=== PATIENT | female | born 1940 | race Caucasian/White ===

== ENCOUNTER → 2016-04-30 | Outpatient (CLI) | payer OTHER ==
[~2016-04-30] MED LIST: AMOXICILLIN 50500 MG PO; CEFDINIR300 MG PO; CHLORTABS4 MG PO; CLARITIN LIQUI-10 MG PO; CLARITIN10 M1 PO; CLINORIL 2200 MG/TAB PO; CYMBALTA60 M1 PO; DESYREL 100MG100 MG PO; DULCOLAX STOOL100 MG PO; DURAGESIC50 MCG/PAT TD; FENTANYL12.5 MCG/H TD; FERROUS GL325 MG/TAB PO; FERROUS SULFATE65 MG PO; FUROSEMIDE40 MG; FUROSEMIDE40 MG PO; INDERAL 60 MG PO; KLONOPIN 1MG1 M1 PO; LASIX40 M1 PO; LEVAQUIN 750MG750 M1 PO; LOW DOSE ASPIRI81 M1 PO; MULTIVITAMIN1 SGL PO; NATURAL IRON65 MG PO; NEURONTIN300 MG/CAP PO; NEURONTIN600 M1 PO; NORCO 325 MG-7.1 TA1 PO; NORCO 7.5-3251 EACH PO; PERCOCET 325 MG1 TA2 PO; POTASSIUM CHLO10 ME7 PO; POTASSIUM GLUC500 M1 PO; PRAVACHOL 20MG20 MG PO; PRILOSEC40 M1 PO; PROPRANOLOL HYD60 MG PO; RT ALBUTEROL CC18 GM IH; SLOW-MAG 106 MG1 ECT PO; SYNTHROID0.075 MG/T PO; VITAMIN C500 M6 PO; ZESTRIL40 M1 PO
== END ==
LOC: RAD 11:53
DX: M25.561 Pain in right knee (principal); Z96.651 Presence of right artificial knee joint

== ENCOUNTER 2016-05-13 13:00 | Outpatient (RCR) | payer OTHER ==
[2015-07-24 09:46] VITALS: BP 114/60
[~2016-05-13 13:00] MED LIST changes: -CEFDINIR300 MG PO; -CHLORTABS4 MG PO; -CLARITIN LIQUI-10 MG PO; -DULCOLAX STOOL100 MG PO; -DURAGESIC50 MCG/PAT TD; -FENTANYL12.5 MCG/H TD; -FERROUS GL325 MG/TAB PO; -FUROSEMIDE40 MG; -FUROSEMIDE40 MG PO; -NEURONTIN600 M1 PO; -NORCO 7.5-3251 EACH PO; -POTASSIUM CHLO10 ME7 PO; -POTASSIUM GLUC500 M1 PO; -PROPRANOLOL HYD60 MG PO; -RT ALBUTEROL CC18 GM IH; -SLOW-MAG 106 MG1 ECT PO
== END 2016-07-11 11:55 | disposition home or self-care (01) ==
LOC: PT 13:00
DX: M19.011 Primary osteoarthritis, right shoulder (principal); M17.0 Bilateral primary osteoarthritis of knee

== ENCOUNTER 2016-08-06 00:44 | Emergency (ER) | payer OTHER ==
[~2016-08-06] VITALS: Ht 165.1 cm; Wt 127.3 kg
[2016-08-06] MEDS ORDERED: DURAGESIC50 MCG/PAT TD (00:50)
[2016-08-06 07:00] VITALS: BP 143/58
[2016-08-06] MEDS ORDERED: NORCO 7.5-3251 EACH PO (08:27)
[2016-08-06] MEDS ORDERED: NEURONTIN600 M1 PO (08:29)
[2016-08-06] MEDS ORDERED: FERROUS GL325 MG/TAB PO (08:29)
[2016-08-06] MEDS ORDERED: PROPRANOLOL HYD60 MG PO (08:37)
[2016-08-06] MEDS ORDERED: FUROSEMIDE40 MG (08:40)
[2016-08-06] MEDS ORDERED: DULCOLAX STOOL100 MG PO (08:41)
[2016-08-06] MEDS ORDERED: POTASSIUM GLUC500 M1 PO (08:42)
[2016-08-06] MEDS ORDERED: CHLORTABS4 MG PO (08:44)
[2016-08-06] MEDS ORDERED: CLARITIN LIQUI-10 MG PO (08:45)
== END 2016-08-06 07:00 ==
LOC: ED 00:44
DX: E87.5 Hyperkalemia (principal); G89.29 Other chronic pain; N39.0 Urinary tract infection, site not specified; R00.2 Palpitations; I10 Essential (primary) hypertension
CPT/HCPCS: A4353; J0696; J1815; J7040

== ENCOUNTER 2016-08-06 07:22 | Inpatient (IN) | payer OTHER ==
[~2016-08-06] VITALS: Ht 165.1 cm; Wt 126.6 kg
[~2016-08-06 07:22] MED LIST changes: +DURAGESIC50 MCG/PAT TD
[2016-08-06 07:37] VITALS: BP 138/82
[2016-08-06 08:24] VITALS: BP 138/82
[2016-08-06] MEDS ORDERED: NORCO 7.5-3251 EACH PO (08:27)
[2016-08-06] MEDS ORDERED: NEURONTIN600 M1 PO (08:29)
[2016-08-06] MEDS ORDERED: FERROUS GL325 MG/TAB PO (08:29)
[2016-08-06] MEDS ORDERED: PROPRANOLOL HYD60 MG PO (08:37)
[2016-08-06] MEDS ORDERED: FUROSEMIDE40 MG (08:40)
[2016-08-06] MEDS ORDERED: DULCOLAX STOOL100 MG PO (08:41)
[2016-08-06] MEDS ORDERED: POTASSIUM GLUC500 M1 PO (08:42)
[2016-08-06] MEDS ORDERED: CHLORTABS4 MG PO (08:44)
[2016-08-06] MEDS ORDERED: CLARITIN LIQUI-10 MG PO (08:45)
[2016-08-06 11:13] VITALS: BP 134/78
[2016-08-06 16:13] VITALS: BP 132/70
[2016-08-06 18:12] VITALS: BP 130/68
[2016-08-06 23:10] VITALS: BP 108/49
[2016-08-07] VITALS (7 sets, daily range): BP systolic 113–169; BP diastolic 54–76
[2016-08-08 02:32] VITALS: BP 121/60
[2016-08-08 06:22] VITALS: BP 149/84
[2016-08-08] MEDS ORDERED: FENTANYL12.5 MCG/H TD (09:17)
[2016-08-08] MEDS ORDERED: FUROSEMIDE40 MG PO (09:18)
[2016-08-08] MEDS ORDERED: RT ALBUTEROL CC18 GM IH (09:19)
[2016-08-08] MEDS ORDERED: CEFDINIR300 MG PO (09:20)
[2016-08-08] MEDS ORDERED: SLOW-MAG 106 MG1 ECT PO (09:24)
[2016-08-08] MEDS ORDERED: POTASSIUM CHLO10 ME7 PO (09:25)
[2016-08-08 11:16] VITALS: BP 144/94
== END 2016-08-08 10:48 | disposition home health service (06) | DRG 641 ==
LOC: MED/SURG 07:22
PROVIDERS: ADMIT Physician Assistant
DX: E87.5 Hyperkalemia (principal); N39.0 Urinary tract infection, site not specified; R55 Syncope and collapse; I95.1 Orthostatic hypotension; E86.0 Dehydration; M25.561 Pain in right knee; M25.511 Pain in right shoulder; M54.5 Low back pain; B96.1 Klebsiella pneumoniae [K. pneumoniae] as the cause of diseases classified elsewhere; E66.01 Morbid (severe) obesity due to excess calories; Z68.42 Body mass index [BMI] 45.0-49.9, adult; N19 Unspecified kidney failure; Z91.81 History of falling; R06.2 Wheezing
CPT/HCPCS: J0696; J1650; J7030

== ENCOUNTER → 2016-08-22 | Outpatient (CLI) | payer OTHER ==
[2016-08-08 11:16] VITALS: BP 144/94
[~2016-08-22] MED LIST changes: +CEFDINIR300 MG PO; +CHLORTABS4 MG PO; +CLARITIN LIQUI-10 MG PO; +DULCOLAX STOOL100 MG PO; +FENTANYL12.5 MCG/H TD; +FERROUS GL325 MG/TAB PO; +FUROSEMIDE40 MG; +FUROSEMIDE40 MG PO; +NEURONTIN600 M1 PO; +NORCO 7.5-3251 EACH PO; +POTASSIUM CHLO10 ME7 PO; +POTASSIUM GLUC500 M1 PO; +PROPRANOLOL HYD60 MG PO; +RT ALBUTEROL CC18 GM IH; +SLOW-MAG 106 MG1 ECT PO
== END ==
LOC: LAB 11:37
DX: I10 Essential (primary) hypertension (principal)

== ENCOUNTER → 2016-09-23 | Outpatient (CLI) | payer OTHER | LOC: LAB 09:48 | DX: I63.29 Cerebral infarction due to unspecified occlusion or stenosis of other precerebral arteries (principal); M79.7 Fibromyalgia; M19.011 Primary osteoarthritis, right shoulder ==

== ENCOUNTER → 2016-10-22 | Outpatient (CLI) | payer OTHER | LOC: LAB 15:37 | DX: I10 Essential (primary) hypertension (principal); D50.8 Other iron deficiency anemias; M19.011 Primary osteoarthritis, right shoulder ==

== ENCOUNTER → 2017-01-02 | Outpatient (CLI) | payer MEDICARE ==
[~2017-01-02] MED LIST changes: +AZO BLADDER CO300 MG PO; +CHLOR-TRIMETON4 MG PO; +CLARITIN 1010 MG/TAB PO; +COLACE100 M1 PO; +GENTLE LAXATIVE5 M1 PO; +KLONOPIN 1MG1 MG PO; +MS CONTIN15 MG PO; +NEURONTIN300 M1 PO; +POTASSIUM99 M3 PO; +PRILOSEC 20MG20 MG PO; +PROPRANOLOL HYD60 M1 PO; +SYNTHROID0.075 MG PO
[2017-01-02 10:18] LABS: EOS # 0.2 (0.04-0.40); EOS % 3.4 % (1.0-5.0); HEMATOCRIT 34.4 % (37.0-47.0); LYMPH# 1.3 (1.50-4.00); MEAN CELL VOLUME 97 fl (78-100); MEAN CORPUSCULAR HEMOGLOBIN 31 pg (27-31); MEAN CORPUSCULAR HGB CONC 32 g/dL (33-37); MEAN PLATELET VOLUME 9.4 fl (7.4-10.4); MONO # 0.7 (0.20-0.80); NEU # 4.4 (1.40-6.50); PLATELET COUNT 157 K/mm3 (130-400); RED BLOOD COUNT 3.54 M/mm3 (4.10-5.30); RED CELL DISTRIBUTION WIDTH 14.1 % (11.5-14.5); WHITE BLOOD COUNT 6.8 K/mm3 (4.8-10.8)
== END ==
LOC: LAB 09:58
PROVIDERS: Internal Medicine
DX: I10 Essential (primary) hypertension (principal); D50.8 Other iron deficiency anemias; M19.011 Primary osteoarthritis, right shoulder

== ENCOUNTER 2017-01-04 00:12 | Observation (INO) | payer MEDICARE ==
[~2017-01-04] VITALS: Ht 165.1 cm; Wt 121.1 kg
[~2017-01-04 00:12] MED LIST changes: -AZO BLADDER CO300 MG PO; -CHLOR-TRIMETON4 MG PO; -CLARITIN 1010 MG/TAB PO; -COLACE100 M1 PO; -GENTLE LAXATIVE5 M1 PO; -KLONOPIN 1MG1 MG PO; -MS CONTIN15 MG PO; -NEURONTIN300 M1 PO; -POTASSIUM99 M3 PO; -PRILOSEC 20MG20 MG PO; -PROPRANOLOL HYD60 M1 PO; -SYNTHROID0.075 MG PO
[2017-01-04 01:46] LABS: URINE APPEARANCE HAZY; URINE BILIRUBIN NEGATIVE (NEGATIVE); URINE BLOOD NEGATIVE (NEGATIVE); URINE COLOR YELLOW; URINE GLUCOSE NEGATIVE (NEGATIVE); URINE KETONE NEGATIVE (NEGATIVE); URINE LEUKOCYTE ESTERASE 1+ (NEGATIVE); URINE NITRATE NEGATIVE (NEGATIVE); URINE PROTEIN(semi-quant) TRACE mg/dL (NEGATIVE); URINE UROBILINOGEN NORMAL (NORMAL)
[2017-01-04 01:46] LABS: BUN/CREATININE RATIO 16.3 (6.0-26.0); CALCIUM 8.7 mg/dL (8.4-10.2); POTASSIUM 4.3 mmol/L (3.6-5.0)
[2017-01-04 01:47] LABS: URINE WBC 31-50 /hpf (0-3)
[2017-01-04 01:51] LABS: HEMATOCRIT 29.5 % (37.0-47.0); HEMOGLOBIN 9.5 g/dL (12.5-16.0); MEAN CELL VOLUME 95 fl (78-100); MEAN CORPUSCULAR HEMOGLOBIN 31 pg (27-31); MEAN CORPUSCULAR HGB CONC 32 g/dL (33-37); MEAN PLATELET VOLUME 10.3 fl (7.4-10.4); PLATELET COUNT 132 K/mm3 (130-400); RED BLOOD COUNT 3.11 M/mm3 (4.10-5.30); RED CELL DISTRIBUTION WIDTH 13.5 % (11.5-14.5); WHITE BLOOD COUNT 6.7 K/mm3 (4.8-10.8)
[2017-01-04 01:55] LABS: LYMPHOCYTE 12 % (20-51); MONOCYTE 11 % (3-10); NEUTROPHILS 77 % (42-75)
[2017-01-04 03:21] VITALS: BP 122/80
[2017-01-04] MEDS ORDERED: COLACE100 M1 PO (04:48)
[2017-01-04] MEDS ORDERED: POTASSIUM99 M3 PO (04:49)
[2017-01-04] MEDS ORDERED: GENTLE LAXATIVE5 M1 PO (04:50)
[2017-01-04] MEDS ORDERED: AZO BLADDER CO300 MG PO (04:51)
[2017-01-04] MEDS ORDERED: PRAVACHOL 20MG20 MG PO (04:53)
[2017-01-04] MEDS ORDERED: KLONOPIN 1MG1 MG PO (04:53)
[2017-01-04] MEDS ORDERED: CYMBALTA60 M1 PO (04:54)
[2017-01-04] MEDS ORDERED: LASIX40 M1 PO (04:55)
[2017-01-04] MEDS ORDERED: MS CONTIN15 MG PO (04:56)
[2017-01-04] MEDS ORDERED: POTASSIUM CHLO10 ME7 PO (04:57)
[2017-01-04] MEDS ORDERED: ZESTRIL40 M1 PO (04:59)
[2017-01-04] MEDS ORDERED: NATURAL IRON65 MG PO (04:59)
[2017-01-04] MEDS ORDERED: PROPRANOLOL HYD60 M1 PO (05:00)
[2017-01-04] MEDS ORDERED: NORCO 325 MG-7.1 TA1 PO (05:01)
[2017-01-04] MEDS ORDERED: DESYREL 100MG100 MG PO (05:02)
[2017-01-04] MEDS ORDERED: PRILOSEC 20MG20 MG PO (05:03)
[2017-01-04] MEDS ORDERED: NEURONTIN300 M1 PO (05:03)
[2017-01-04] MEDS ORDERED: SYNTHROID0.075 MG PO (05:04)
[2017-01-04] MEDS ORDERED: CLINORIL 2200 MG/TAB PO (05:05)
[2017-01-04] MEDS ORDERED: CHLOR-TRIMETON4 MG PO (05:07)
[2017-01-04] MEDS ORDERED: CLARITIN 1010 MG/TAB PO (05:08)
[2017-01-04 06:24] VITALS: BP 145/69
[2017-01-04 11:04] VITALS: BP 132/71
[2017-01-04 15:03] VITALS: BP 135/72
[2017-01-04 18:10] VITALS: BP 127/58
[2017-01-04 23:45] VITALS: BP 164/74
[2017-01-05 02:37] VITALS: BP 174/70
[2017-01-05 06:50] VITALS: BP 179/58
[2017-01-05] MEDS ORDERED: MACRODANTIN50 M1 PO (08:50)
[2017-01-05 09:19] VITALS: BP 148/71
== END 2017-01-05 09:56 | disposition home or self-care (01) ==
LOC: ED 00:12 → MED/SURG 02:30
PROVIDERS: ADMIT Family Medicine
DX: S52.572A Other intraarticular fracture of lower end of left radius, initial encounter for closed fracture (principal); Z74.1 Need for assistance with personal care; R53.81 Other malaise; E66.01 Morbid (severe) obesity due to excess calories; N39.0 Urinary tract infection, site not specified; G89.29 Other chronic pain; R60.0 Localized edema; F32.9 Major depressive disorder, single episode, unspecified; I10 Essential (primary) hypertension; M79.7 Fibromyalgia; K21.9 Gastro-esophageal reflux disease without esophagitis; Z96.651 Presence of right artificial knee joint; M19.90 Unspecified osteoarthritis, unspecified site; W01.10XA Fall on same level from slipping, tripping and stumbling with subsequent striking against unspecified object, initial encounter; Z91.81 History of falling; Y92.009 Unspecified place in unspecified non-institutional (private) residence as the place of occurrence of the external cause
CPT/HCPCS: A4353; G0378

== ENCOUNTER 2017-01-06 16:44 | Inpatient (IN) | payer MEDICARE ==
[~2017-01-06] VITALS: Ht 165.1 cm; Wt 119.1 kg
[~2017-01-06 16:44] MED LIST changes: +AZO BLADDER CO300 MG PO; +CHLOR-TRIMETON4 MG PO; +CLARITIN 1010 MG/TAB PO; +COLACE100 M1 PO; +GENTLE LAXATIVE5 M1 PO; +KLONOPIN 1MG1 MG PO; +MACRODANTIN50 M1 PO; +MS CONTIN15 MG PO; +NEURONTIN300 M1 PO; +POTASSIUM99 M3 PO; +PRILOSEC 20MG20 MG PO; +PROPRANOLOL HYD60 M1 PO; +SYNTHROID0.075 MG PO
[2017-01-06 17:16] VITALS: BP 143/82
[2017-01-06 18:06] VITALS: BP 143/82
[2017-01-06 18:35] VITALS: BP 143/82
[2017-01-07 06:09] LABS: BASO # 0.1 (0.02-0.10); EOS # 0.3 (0.04-0.40); EOS % 4.4 % (1.0-5.0); HEMATOCRIT 29.9 % (37.0-47.0); HEMOGLOBIN 9.5 g/dL (12.5-16.0); LYMPH# 1.6 (1.50-4.00); MEAN CELL VOLUME 97 fl (78-100); MEAN CORPUSCULAR HEMOGLOBIN 31 pg (27-31); MEAN CORPUSCULAR HGB CONC 32 g/dL (33-37); MEAN PLATELET VOLUME 9.6 fl (7.4-10.4); MONO # 0.5 (0.20-0.80); NEU # 3.5 (1.40-6.50); PLATELET COUNT 168 K/mm3 (130-400); RED BLOOD COUNT 3.08 M/mm3 (4.10-5.30); RED CELL DISTRIBUTION WIDTH 13.4 % (11.5-14.5); WHITE BLOOD COUNT 6.1 K/mm3 (4.8-10.8)
[2017-01-07 06:24] LABS: BUN/CREATININE RATIO 19.2 (6.0-26.0); CALCIUM 8.7 mg/dL (8.4-10.2); POTASSIUM 3.7 mmol/L (3.6-5.0)
[2017-01-07 06:34] VITALS: BP 150/76
[2017-01-07 18:23] VITALS: BP 153/84
[2017-01-08 06:22] VITALS: BP 161/55
[2017-01-08 18:16] VITALS: BP 138/62
[2017-01-09 06:29] VITALS: BP 155/78
[2017-01-09 18:13] VITALS: BP 142/61
[2017-01-10 06:35] VITALS: BP 134/58
[2017-01-10 17:59] VITALS: BP 166/86
[2017-01-11 06:29] VITALS: BP 133/59
[2017-01-11 18:19] VITALS: BP 125/60
[2017-01-12 06:09] VITALS: BP 137/65
[2017-01-12 18:09] VITALS: BP 137/73
[2017-01-13 06:33] VITALS: BP 131/53
[2017-01-13] MEDS ORDERED: MACROBID 100 M100 MG PO (11:07)
[2017-01-13 12:00] VITALS: BP 115/60
== END 2017-01-13 12:07 | disposition home or self-care (01) | DRG 560 ==
LOC: MED/SURG 16:44
PROVIDERS: ADMIT Internal Medicine
DX: S52.572D Other intraarticular fracture of lower end of left radius, subsequent encounter for closed fracture with routine healing (principal); N39.0 Urinary tract infection, site not specified; Z68.41 Body mass index [BMI] 40.0-44.9, adult; I10 Essential (primary) hypertension; M79.7 Fibromyalgia; K21.9 Gastro-esophageal reflux disease without esophagitis; E78.5 Hyperlipidemia, unspecified; D50.9 Iron deficiency anemia, unspecified; E66.01 Morbid (severe) obesity due to excess calories; W19.XXXD Unspecified fall, subsequent encounter; K59.00 Constipation, unspecified; M19.012 Primary osteoarthritis, left shoulder; M19.011 Primary osteoarthritis, right shoulder; M17.11 Unilateral primary osteoarthritis, right knee

== ENCOUNTER 2017-01-24 12:55 | Emergency (ER) | payer MEDICARE ==
[~2017-01-24] VITALS: Ht 165.1 cm; Wt 126.5 kg
[~2017-01-24 12:55] MED LIST changes: +MACROBID 100 M100 MG PO
[2017-01-24 13:52] LABS: EOS # 0.2 (0.04-0.40); EOS % 1.9 % (1.0-5.0); HEMATOCRIT 31.1 % (37.0-47.0); HEMOGLOBIN 9.6 g/dL (12.5-16.0); LYMPH# 1.6 (1.50-4.00); MEAN CELL VOLUME 100 fl (78-100); MEAN CORPUSCULAR HEMOGLOBIN 31 pg (27-31); MEAN CORPUSCULAR HGB CONC 31 g/dL (33-37); MEAN PLATELET VOLUME 9.9 fl (7.4-10.4); MONO # 0.8 (0.20-0.80); NEU # 8.7 (1.40-6.50); PLATELET COUNT 220 K/mm3 (130-400); RED BLOOD COUNT 3.11 M/mm3 (4.10-5.30); RED CELL DISTRIBUTION WIDTH 14.7 % (11.5-14.5); WHITE BLOOD COUNT 11.3 K/mm3 (4.8-10.8)
[2017-01-24 14:03] LABS: ALBUMIN 3.4 g/dL (3.5-5.0); BUN/CREATININE RATIO 21.6 (6.0-26.0); CALCIUM 8.7 mg/dL (8.4-10.2); TOTAL PROTEIN 6.7 g/dL (6.3-8.2)
[2017-01-24 14:11] LABS: POTASSIUM 7.4 mmol/L (3.6-5.0)
[2017-01-24 14:25] LABS: URINE APPEARANCE HAZY; URINE BILIRUBIN NEGATIVE (NEGATIVE); URINE BLOOD NEGATIVE (NEGATIVE); URINE COLOR YELLOW; URINE GLUCOSE NEGATIVE (NEGATIVE); URINE KETONE NEGATIVE (NEGATIVE); URINE LEUKOCYTE ESTERASE 1+ (NEGATIVE); URINE NITRATE NEGATIVE (NEGATIVE); URINE PROTEIN(semi-quant) TRACE mg/dL (NEGATIVE); URINE UROBILINOGEN NORMAL (NORMAL)
[2017-01-24 14:26] LABS: URINE WBC 16-30 /hpf (0-3)
[2017-01-24 14:36] LABS: CKMB ISOENZYME 0.7 ng/mL (0.6-3.5)
[2017-01-24 14:39] LABS: TROPONIN-I < 0.03 ng/mL (0.00-0.06)
[2017-01-24 16:48] VITALS: BP 94/64
== END 2017-01-24 16:34 | disposition short-term general hospital (02) ==
LOC: ED 12:55
PROVIDERS: Physician Assistant
DX: E87.5 Hyperkalemia (principal); N19 Unspecified kidney failure; S62.102D Fracture of unspecified carpal bone, left wrist, subsequent encounter for fracture with routine healing; N39.0 Urinary tract infection, site not specified; I95.9 Hypotension, unspecified; R53.1 Weakness; I10 Essential (primary) hypertension; Z91.81 History of falling; W19.XXXD Unspecified fall, subsequent encounter; K21.9 Gastro-esophageal reflux disease without esophagitis; M79.7 Fibromyalgia; E78.5 Hyperlipidemia, unspecified; D64.9 Anemia, unspecified; E66.01 Morbid (severe) obesity due to excess calories; Z68.42 Body mass index [BMI] 45.0-49.9, adult; R60.0 Localized edema; M25.561 Pain in right knee; M25.511 Pain in right shoulder; R29.898 Other symptoms and signs involving the musculoskeletal system
CPT/HCPCS: A4353; J0610; J7030; J7070

== ENCOUNTER → 2017-02-21 | Outpatient (CLI) | payer MEDICARE ==
[2017-01-24 16:48] VITALS: BP 94/64
[~2017-02-21] MED LIST changes: +NATURAL VITAM1000 MG PO
[2017-02-21 11:39] LABS: BASO # 0.1 (0.02-0.10); EOS # 0.4 (0.04-0.40); EOS % 5.1 % (1.0-5.0); HEMATOCRIT 33.7 % (37.0-47.0); HEMOGLOBIN 10.3 g/dL (12.5-16.0); LYMPH# 1.7 (1.50-4.00); MEAN CELL VOLUME 100 fl (78-100); MEAN CORPUSCULAR HEMOGLOBIN 31 pg (27-31); MEAN CORPUSCULAR HGB CONC 31 g/dL (33-37); MEAN PLATELET VOLUME 10.4 fl (7.4-10.4); MONO # 0.4 (0.20-0.80); NEU # 5.8 (1.40-6.50); PLATELET COUNT 224 K/mm3 (130-400); RED BLOOD COUNT 3.36 M/mm3 (4.10-5.30); RED CELL DISTRIBUTION WIDTH 15.4 % (11.5-14.5); WHITE BLOOD COUNT 8.4 K/mm3 (4.8-10.8)
[2017-02-21 11:52] LABS: BUN/CREATININE RATIO 31.3 (6.0-26.0); CALCIUM 9.2 mg/dL (8.4-10.2)
[2017-02-21 11:59] LABS: POTASSIUM 5.9 mmol/L (3.6-5.0)
== END ==
LOC: LAB 11:29
PROVIDERS: Family Medicine
DX: R25.1 Tremor, unspecified (principal); N30.00 Acute cystitis without hematuria

== ENCOUNTER 2017-02-22 13:01 | Emergency (ER) | payer MEDICARE ==
[~2017-02-22] VITALS: Wt 123.2 kg
[~2017-02-22 13:01] MED LIST changes: -NATURAL VITAM1000 MG PO
[2017-02-22] MEDS ORDERED: NATURAL VITAM1000 MG PO (13:53)
[2017-02-22] MEDS ORDERED: MULTIVITAMIN1 SGL PO (13:54)
[2017-02-22 14:08] LABS: EOS # 0.4 (0.04-0.40); EOS % 5.1 % (1.0-5.0); HEMATOCRIT 31.8 % (37.0-47.0); HEMOGLOBIN 9.7 g/dL (12.5-16.0); LYMPH# 1.8 (1.50-4.00); MEAN CELL VOLUME 99 fl (78-100); MEAN CORPUSCULAR HEMOGLOBIN 30 pg (27-31); MEAN CORPUSCULAR HGB CONC 31 g/dL (33-37); MEAN PLATELET VOLUME 10.2 fl (7.4-10.4); MONO # 0.6 (0.20-0.80); NEU # 5.3 (1.40-6.50); PLATELET COUNT 240 K/mm3 (130-400); RED BLOOD COUNT 3.21 M/mm3 (4.10-5.30); RED CELL DISTRIBUTION WIDTH 15.6 % (11.5-14.5); WHITE BLOOD COUNT 8.2 K/mm3 (4.8-10.8)
[2017-02-22 14:28] LABS: ALBUMIN 3.8 g/dL (3.5-5.0); BUN/CREATININE RATIO 24.6 (6.0-26.0); TOTAL BILIRUBIN 0.6 mg/dL (0.2-1.3)
[2017-02-22 14:30] LABS: POTASSIUM 6.4 mmol/L (3.6-5.0)
[2017-02-22 19:12] LABS: BUN/CREATININE RATIO 22.9 (6.0-26.0); CALCIUM 8.7 mg/dL (8.4-10.2)
[2017-02-22 19:30] LABS: POTASSIUM 6.3 mmol/L (3.6-5.0)
[2017-02-22 19:53] VITALS: BP 85/54
[2017-02-22] MEDS ORDERED: GENTLE LAXATIVE5 M1 PO (23:45)
== END 2017-02-22 19:53 | disposition other institution (70) ==
LOC: ED 13:01
PROVIDERS: Family Medicine
DX: E87.5 Hyperkalemia (principal); E86.9 Volume depletion, unspecified; I12.9 Hypertensive chronic kidney disease with stage 1 through stage 4 chronic kidney disease, or unspecified chronic kidney disease; N18.9 Chronic kidney disease, unspecified; N17.9 Acute kidney failure, unspecified; I95.9 Hypotension, unspecified; E66.01 Morbid (severe) obesity due to excess calories; Z90.49 Acquired absence of other specified parts of digestive tract; Z91.81 History of falling; G89.29 Other chronic pain; M25.511 Pain in right shoulder; M25.561 Pain in right knee; M79.7 Fibromyalgia; D64.9 Anemia, unspecified
CPT/HCPCS: J1815; J7042

== ENCOUNTER → 2017-03-11 | Outpatient (CLI) | payer MEDICARE ==
[2017-02-23 06:39] VITALS: BP 97/47
[~2017-03-11] MED LIST changes: +NATURAL VITAM1000 MG PO
[2017-03-11 16:38] LABS: ALBUMIN 3.3 g/dL (3.5-5.0); BUN/CREATININE RATIO 13.6 (6.0-26.0); TOTAL BILIRUBIN 0.5 mg/dL (0.2-1.3)
[2017-03-11 16:39] LABS: EOS # 0.2 (0.04-0.40); EOS % 2.6 % (1.0-5.0); HEMATOCRIT 35.6 % (37.0-47.0); HEMOGLOBIN 10.5 g/dL (12.5-16.0); LYMPH# 1.1 (1.50-4.00); MEAN CELL VOLUME 102 fl (78-100); MEAN CORPUSCULAR HEMOGLOBIN 30 pg (27-31); MEAN CORPUSCULAR HGB CONC 30 g/dL (33-37); MEAN PLATELET VOLUME 10.6 fl (7.4-10.4); MONO # 0.3 (0.20-0.80); NEU # 5.2 (1.40-6.50); PLATELET COUNT 159 K/mm3 (130-400); RED BLOOD COUNT 3.49 M/mm3 (4.10-5.30); RED CELL DISTRIBUTION WIDTH 14.5 % (11.5-14.5); WHITE BLOOD COUNT 6.9 K/mm3 (4.8-10.8)
[2017-03-11 19:00] LABS: URINE APPEARANCE CLOUDY; URINE COLOR YELLOW; URINE PROTEIN(semi-quant) 1+ mg/dL (NEGATIVE)
[2017-03-11 19:01] LABS: URINE BILIRUBIN NEGATIVE (NEGATIVE); URINE BLOOD TRACE (NEGATIVE); URINE GLUCOSE NEGATIVE (NEGATIVE); URINE KETONE NEGATIVE (NEGATIVE); URINE LEUKOCYTE ESTERASE 2+ (NEGATIVE); URINE NITRATE NEGATIVE (NEGATIVE); URINE UROBILINOGEN NORMAL (NORMAL)
[2017-03-11 19:02] LABS: URINE WBC >50 /hpf (0-3)
== END ==
LOC: LAB 12:22
PROVIDERS: Internal Medicine
DX: N30.00 Acute cystitis without hematuria (principal); I10 Essential (primary) hypertension; I63.29 Cerebral infarction due to unspecified occlusion or stenosis of other precerebral arteries; R25.1 Tremor, unspecified

== ENCOUNTER → 2017-03-14 | Outpatient (CLI) | payer MEDICARE ==
[2017-02-23 06:39] VITALS: BP 97/47
[2017-03-14 14:54] LABS: URINE APPEARANCE HAZY; URINE BILIRUBIN NEGATIVE (NEGATIVE); URINE BLOOD NEGATIVE (NEGATIVE); URINE COLOR YELLOW; URINE GLUCOSE NEGATIVE (NEGATIVE); URINE KETONE NEGATIVE (NEGATIVE); URINE NITRATE NEGATIVE (NEGATIVE); URINE PROTEIN(semi-quant) TRACE mg/dL (NEGATIVE); URINE UROBILINOGEN NORMAL (NORMAL)
[2017-03-14 14:55] LABS: URINE LEUKOCYTE ESTERASE 2+ (NEGATIVE); URINE WBC >50 /hpf (0-3)
== END ==
LOC: LAB 14:16
PROVIDERS: Internal Medicine
DX: N39.0 Urinary tract infection, site not specified (principal)

== ENCOUNTER → 2017-05-09 | Outpatient (CLI) | payer MEDICARE ==
[2017-02-23 06:39] VITALS: BP 97/47
[2017-05-09 09:14] LABS: EOS # 0.2 (0.04-0.40); EOS % 2.6 % (1.0-5.0); HEMATOCRIT 39.3 % (37.0-47.0); HEMOGLOBIN 12.1 g/dL (12.5-16.0); LYMPH# 1.6 (1.50-4.00); MEAN CELL VOLUME 96 fl (78-100); MEAN CORPUSCULAR HEMOGLOBIN 30 pg (27-31); MEAN CORPUSCULAR HGB CONC 31 g/dL (33-37); MEAN PLATELET VOLUME 9.3 fl (7.4-10.4); MONO # 0.4 (0.20-0.80); NEU # 4.4 (1.40-6.50); PLATELET COUNT 187 K/mm3 (130-400); RED BLOOD COUNT 4.08 M/mm3 (4.10-5.30); RED CELL DISTRIBUTION WIDTH 14.2 % (11.5-14.5); WHITE BLOOD COUNT 6.7 K/mm3 (4.8-10.8)
[2017-05-09 09:27] LABS: ALBUMIN 3.6 g/dL (3.5-5.0); BUN/CREATININE RATIO 13.6 (6.0-26.0); CALCIUM 8.8 mg/dL (8.4-10.2); POTASSIUM 3.9 mmol/L (3.6-5.0); TOTAL BILIRUBIN 0.3 mg/dL (0.2-1.3)
[2017-05-09 10:13] LABS: ERYTHROCYTE SEDIMENTATION RATE 45 mm/hr (0-30)
== END ==
LOC: LAB 08:57
PROVIDERS: Internal Medicine
DX: I10 Essential (primary) hypertension (principal); D50.8 Other iron deficiency anemias; E78.2 Mixed hyperlipidemia

== ENCOUNTER → 2017-06-06 | Outpatient (CLI) | payer MEDICARE, MEDICAID ==
[2017-02-23 06:39] VITALS: BP 97/47
== END ==
LOC: RAD 12:05
DX: M19.211 Secondary osteoarthritis, right shoulder (principal); M24.111 Other articular cartilage disorders, right shoulder

== ENCOUNTER → 2017-07-04 | Outpatient (CLI) | payer MEDICARE, MEDICAID ==
[2017-02-23 06:39] VITALS: BP 97/47
[2017-07-04 16:27] LABS: EOS # 0.2 (0.04-0.40); EOS % 3.5 % (1.0-5.0); HEMATOCRIT 38.2 % (37.0-47.0); HEMOGLOBIN 11.8 g/dL (12.5-16.0); LYMPH# 1.6 (1.50-4.00); MEAN CELL VOLUME 96 fl (78-100); MEAN CORPUSCULAR HEMOGLOBIN 30 pg (27-31); MEAN CORPUSCULAR HGB CONC 31 g/dL (33-37); MEAN PLATELET VOLUME 9.3 fl (7.4-10.4); MONO # 0.5 (0.20-0.80); NEU # 4.2 (1.40-6.50); PLATELET COUNT 182 K/mm3 (130-400); RED BLOOD COUNT 3.97 M/mm3 (4.10-5.30); WHITE BLOOD COUNT 6.6 K/mm3 (4.8-10.8)
[2017-07-04 16:36] LABS: ALBUMIN 3.7 g/dL (3.5-5.0); BUN/CREATININE RATIO 16.4 (6.0-26.0); CALCIUM 8.9 mg/dL (8.4-10.2); POTASSIUM 4.8 mmol/L (3.6-5.0); TOTAL BILIRUBIN 0.3 mg/dL (0.2-1.3); TOTAL PROTEIN 7.3 g/dL (6.3-8.2)
[2017-07-04 19:00] LABS: ERYTHROCYTE SEDIMENTATION RATE 50 mm/hr (0-30)
== END ==
LOC: LAB 16:07
PROVIDERS: Internal Medicine
DX: I10 Essential (primary) hypertension (principal); D50.8 Other iron deficiency anemias; E78.2 Mixed hyperlipidemia; Z12.11 Encounter for screening for malignant neoplasm of colon; R20.2 Paresthesia of skin

== ENCOUNTER → 2017-07-11 | Outpatient (CLI) | payer MEDICARE, MEDICAID ==
[2017-02-23 06:39] VITALS: BP 97/47
== END ==
LOC: LAB 13:44
DX: D50.8 Other iron deficiency anemias (principal); E78.2 Mixed hyperlipidemia; Z12.11 Encounter for screening for malignant neoplasm of colon

== ENCOUNTER → 2017-08-15 | Outpatient (CLI) | payer MEDICARE, MEDICAID ==
[2017-02-23 06:39] VITALS: BP 97/47
== END ==
LOC: CARDREHAB 10:32 → CARDLAB 14:20
DX: Z01.818 Encounter for other preprocedural examination (principal); R06.02 Shortness of breath; I10 Essential (primary) hypertension; I63.9 Cerebral infarction, unspecified; M19.019 Primary osteoarthritis, unspecified shoulder; E78.2 Mixed hyperlipidemia
CPT/HCPCS: A9500

== ENCOUNTER → 2017-08-28 | Outpatient (CLI) | payer MEDICARE, MEDICAID ==
[2017-02-23 06:39] VITALS: BP 97/47
[2017-08-28 16:10] LABS: PROTHROMBIN TIME 9.6 SECONDS (9.0-12.0)
[2017-08-28 16:15] LABS: ALBUMIN 3.6 g/dL (3.5-5.0); BUN/CREATININE RATIO 18.4 (6.0-26.0); CALCIUM 8.5 mg/dL (8.4-10.2); POTASSIUM 4.3 mmol/L (3.6-5.0); TOTAL BILIRUBIN 0.4 mg/dL (0.2-1.3); TOTAL PROTEIN 6.9 g/dL (6.3-8.2)
[2017-08-28 16:22] LABS: EOS # 0.3 (0.04-0.40); EOS % 3.7 % (1.0-5.0); HEMATOCRIT 34.7 % (37.0-47.0); LYMPH# 1.6 (1.50-4.00); MEAN CELL VOLUME 96 fl (78-100); MEAN CORPUSCULAR HEMOGLOBIN 30 pg (27-31); MEAN CORPUSCULAR HGB CONC 32 g/dL (33-37); MEAN PLATELET VOLUME 9.9 fl (7.4-10.4); MONO # 0.5 (0.20-0.80); NEU # 4.4 (1.40-6.50); PLATELET COUNT 161 K/mm3 (130-400); RED BLOOD COUNT 3.63 M/mm3 (4.10-5.30); RED CELL DISTRIBUTION WIDTH 13.6 % (11.5-14.5); WHITE BLOOD COUNT 6.8 K/mm3 (4.8-10.8)
== END ==
LOC: RAD 15:17
PROVIDERS: Internal Medicine
DX: Z01.818 Encounter for other preprocedural examination (principal); M19.011 Primary osteoarthritis, right shoulder

== ENCOUNTER → 2017-09-01 | Outpatient (CLI) | payer MEDICARE, MEDICAID ==
[2017-02-23 06:39] VITALS: BP 97/47
[2017-09-01 14:40] LABS: URINE APPEARANCE CLOUDY; URINE BILIRUBIN NEGATIVE (NEGATIVE); URINE COLOR YELLOW; URINE GLUCOSE NEGATIVE (NEGATIVE); URINE KETONE NEGATIVE (NEGATIVE); URINE NITRATE POSITIVE (NEGATIVE); URINE PROTEIN(semi-quant) TRACE mg/dL (NEGATIVE); URINE UROBILINOGEN NORMAL (NORMAL)
[2017-09-01 14:41] LABS: URINE BLOOD NEGATIVE (NEGATIVE); URINE LEUKOCYTE ESTERASE 1+ (NEGATIVE); URINE WBC >50 /hpf (0-3)
== END ==
LOC: LAB 13:51
PROVIDERS: Internal Medicine
DX: Z01.812 Encounter for preprocedural laboratory examination (principal); M19.019 Primary osteoarthritis, unspecified shoulder; N39.0 Urinary tract infection, site not specified

== ENCOUNTER → 2017-09-08 | Outpatient (CLI) | payer MEDICARE, MEDICAID ==
[2017-02-23 06:39] VITALS: BP 97/47
[2017-09-08 13:42] LABS: ALBUMIN 3.6 g/dL (3.5-5.0); CALCIUM 8.5 mg/dL (8.4-10.2); POTASSIUM 3.5 mmol/L (3.6-5.0); TOTAL BILIRUBIN 0.4 mg/dL (0.2-1.3)
== END ==
LOC: LAB 13:07
PROVIDERS: Internal Medicine
DX: Z01.818 Encounter for other preprocedural examination (principal); M19.011 Primary osteoarthritis, right shoulder; N39.0 Urinary tract infection, site not specified

== ENCOUNTER 2018-01-29 13:00 | Outpatient (RCR) | payer MEDICARE, MEDICAID ==
[2017-02-23 06:39] VITALS: BP 97/47
== END 2018-01-29 13:30 | disposition home or self-care (01) ==
LOC: PT 13:00
DX: M17.0 Bilateral primary osteoarthritis of knee (principal); R29.898 Other symptoms and signs involving the musculoskeletal system; R27.0 Ataxia, unspecified
CPT/HCPCS: G8978-GP; G8979-GP

== ENCOUNTER → 2018-09-01 | Outpatient (CLI) | payer MEDICARE, MEDICAID ==
[2018-06-15 01:55] VITALS: BP 163/70
[~2018-09-01] MED LIST changes: +CLINORIL 1150 MG/TAB PO; +DULOXETINE30 MG PO; +SYNTHROID RP0.1 MG PO
[2018-09-01 16:22] LABS: URINE APPEARANCE HAZY; URINE COLOR YELLOW
[2018-09-01 16:23] LABS: URINE BILIRUBIN NEGATIVE (NEGATIVE); URINE BLOOD NEGATIVE (NEGATIVE); URINE GLUCOSE NEGATIVE (NEGATIVE); URINE KETONE NEGATIVE (NEGATIVE); URINE LEUKOCYTE ESTERASE 2+ (NEGATIVE); URINE NITRATE POSITIVE (NEGATIVE); URINE PROTEIN(semi-quant) TRACE mg/dL (NEGATIVE); URINE UROBILINOGEN NORMAL (NORMAL); URINE WBC >50 /hpf (0-3)
== END ==
LOC: LAB 08-31 08:43
PROVIDERS: Internal Medicine
DX: N39.46 Mixed incontinence (principal)

== ENCOUNTER → 2018-12-14 | Outpatient (CLI) | payer MEDICARE, MEDICAID ==
[2018-06-15 01:55] VITALS: BP 163/70
== END ==
LOC: RAD 14:47
DX: S22.41XA Multiple fractures of ribs, right side, initial encounter for closed fracture (principal); M19.011 Primary osteoarthritis, right shoulder; I70.90 Unspecified atherosclerosis; R06.02 Shortness of breath

== ENCOUNTER → 2019-04-05 | Outpatient (CLI) | payer MEDICARE, MEDICAID ==
[2018-06-15 01:55] VITALS: BP 163/70
== END ==
LOC: RAD 15:20
DX: M17.0 Bilateral primary osteoarthritis of knee (principal); M21.162 Varus deformity, not elsewhere classified, left knee; M21.161 Varus deformity, not elsewhere classified, right knee

== ENCOUNTER → 2019-05-12 | Outpatient (CLI) | payer MEDICARE, MEDICAID ==
[2018-06-15 01:55] VITALS: BP 163/70
[2019-05-12 09:35] LABS: URINE APPEARANCE CLOUDY; URINE BILIRUBIN NEGATIVE (NEGATIVE); URINE BLOOD TRACE (NEGATIVE); URINE COLOR YELLOW; URINE GLUCOSE NEGATIVE (NEGATIVE); URINE KETONE NEGATIVE (NEGATIVE); URINE LEUKOCYTE ESTERASE 2+ (NEGATIVE); URINE NITRATE POSITIVE (NEGATIVE); URINE PROTEIN(semi-quant) TRACE mg/dL (NEGATIVE); URINE UROBILINOGEN NORMAL (NORMAL)
[2019-05-12 09:36] LABS: URINE MUCUS PRESENT (NOT PRESENT); URINE WBC >50 /hpf (0-3)
== END ==
LOC: LAB 09:06
PROVIDERS: Internal Medicine
DX: R10.2 Pelvic and perineal pain (principal); R30.0 Dysuria